=== PATIENT | female | born 1965 | race Caucasian/White ===

== ENCOUNTER → 2017-11-12 | Outpatient (CLI) | payer OTHER | END | disposition home or self-care (01) | LOC: KCIC MAMMO 09:44 | DX: Z12.31 Encounter for screening mammogram for malignant neoplasm of breast (principal) | CPT/HCPCS: 77063; 77067 ==

== ENCOUNTER → 2017-11-25 | Outpatient (CLI) | payer OTHER | END | disposition home or self-care (01) | LOC: KCIC US 08:00 | DX: N64.89 Other specified disorders of breast (principal) | CPT/HCPCS: 76641 ==

== ENCOUNTER → 2018-06-07 | Outpatient (CLI) | payer OTHER ==
--- NOTE | 2018-06-07 17:46 | KCIC ---
EXAM: Bilateral digital diagnostic mammogram with tomosynthesis; bilateral breast sonogram. HISTORY: 52-year-old female presents for 6 month follow-up evaluation of benign-appearing fibers cystic lesions within both breasts demonstrated on a mammogram and sonogram dated 11/12/2017 and 11/25/2017. TECHNIQUE: Full-field digital craniocaudal and mediolateral oblique 2D and 3D tomosynthesis images of both breasts are obtained for evaluation. Computer aided detection with [employer] software version 9.3 was applied. Sonographic imaging of both breasts including all 4 quadrants and the retroareolar tissues was performed. COMPARISON: 11/25/2017 and 11/12/2017 BREAST PARENCHYMAL DENSITY: Level B - Scattered fibroglandular densities. FINDINGS: There is stable areas of nodularity and asymmetry within both breasts. There is no new suspicious mass, calcification or distortion within either breast. Sonographic imaging of the right breast demonstrates a 6 x 4 x 3 mm hypoechoic lesion at the 12:00 position 3 cm from the nipple, previously measuring 7 x 5 x 3 mm. The previously demonstrated lesion at the 9:00 position 11 cm from nipple is not seen on this exam. Sonographic imaging of the left breast demonstrates a circumscribed hypoechoic lesion at the 3:00 position 7 cm from the nipple measuring 4 x 2 x 2 mm, previously measuring 5 x 4 x 3 mm. There is a similar hypoechoic lesion at the 4:00 position 5 cm from the nipple measuring 4 x 4 x 3 mm. There is no correlate for this finding on the prior sonogram. IMPRESSION: 1. 6 mm suspected benign fibrocystic lesion at the 12:00 position of the right breast, slightly decreased compared to the prior study. The second lesion demonstrated within the right breast on the prior study is not seen on the current exam. 2. 4 mm suspected benign complicated cystic or fibrocystic lesion within the 3:00 position of the left breast, slightly decreased compared to the prior study. There is second hypoechoic lesion measuring 4 mm at the 4:00 position which demonstrates no clear correlate on the prior study. 3. BI-RADS Category 3: Probably benign finding(s). Precautionary short-term follow up with a bilateral breast sonogram in 6 months is recommended to confirm longer-term stability. If your mammogram demonstrates that you have dense breast tissue, which could hide abnormalities, and if you have other risk factors for breast cancer that have been identified, you might benefit from supplemental screening tests that may be suggested by your ordering physician. Dense breast tissue, in and of itself, is a relatively common condition. This information is not provided to cause undue concern, but rather to raise your awareness and to promote discussion with your physician regarding the presence of other risk factors, in addition to dense breast tissue. A report of your mammography results will be sent to you and your physician. You should contact your physician if you have any questions or concerns regarding this report. Mammography is a sensitive method for finding small breast cancers, but it does not detect them all and is not a substitute for careful clinical examination. A negative mammogram does not negate a clinically suspicious finding and should not result in delay in biopsying a clinically suspicious abnormality. PQRS compliance statement - Patient information was entered into a reminder system with a target due date for the next mammogram. "Our facility is accredited by the [employer] Mammography Program." Electronically signed by: Crystal Harrison MD (06/07/2018 5:42 PM) [facility]
--- NOTE | 2018-06-08 08:37 | KCIC ---
EXAM: Bilateral digital diagnostic mammogram with tomosynthesis; bilateral breast sonogram. HISTORY: 52-year-old female presents for 6 month follow-up evaluation of benign-appearing fibers cystic lesions within both breasts demonstrated on a mammogram and sonogram dated 11/12/2017 and 11/25/2017. TECHNIQUE: Full-field digital craniocaudal and mediolateral oblique 2D and 3D tomosynthesis images of both breasts are obtained for evaluation. Computer aided detection with [employer] software version 9.3 was applied. Sonographic imaging of both breasts including all 4 quadrants and the retroareolar tissues was performed. COMPARISON: 11/25/2017 and 11/12/2017 BREAST PARENCHYMAL DENSITY: Level B - Scattered fibroglandular densities. FINDINGS: There is stable areas of nodularity and asymmetry within both breasts. There is no new suspicious mass, calcification or distortion within either breast. Sonographic imaging of the right breast demonstrates a 6 x 4 x 3 mm hypoechoic lesion at the 12:00 position 3 cm from the nipple, previously measuring 7 x 5 x 3 mm. The previously demonstrated lesion at the 9:00 position 11 cm from nipple is not seen on this exam. Sonographic imaging of the left breast demonstrates a circumscribed hypoechoic lesion at the 3:00 position 7 cm from the nipple measuring 4 x 2 x 2 mm, previously measuring 5 x 4 x 3 mm. There is a similar hypoechoic lesion at the 4:00 position 5 cm from the nipple measuring 4 x 4 x 3 mm. There is no correlate for this finding on the prior sonogram. IMPRESSION: 1. 6 mm suspected benign fibrocystic lesion at the 12:00 position of the right breast, slightly decreased compared to the prior study. The second lesion demonstrated within the right breast on the prior study is not seen on the current exam. 2. 4 mm suspected benign complicated cystic or fibrocystic lesion within the 3:00 position of the left breast, slightly decreased compared to the prior study. There is second hypoechoic lesion measuring 4 mm at the 4:00 position which demonstrates no clear correlate on the prior study. 3. BI-RADS Category 3: Probably benign finding(s). Precautionary short-term follow up with a bilateral breast sonogram in 6 months is recommended to confirm longer-term stability. If your mammogram demonstrates that you have dense breast tissue, which could hide abnormalities, and if you have other risk factors for breast cancer that have been identified, you might benefit from supplemental screening tests that may be suggested by your ordering physician. Dense breast tissue, in and of itself, is a relatively common condition. This information is not provided to cause undue concern, but rather to raise your awareness and to promote discussion with your physician regarding the presence of other risk factors, in addition to dense breast tissue. A report of your mammography results will be sent to you and your physician. You should contact your physician if you have any questions or concerns regarding this report. Mammography is a sensitive method for finding small breast cancers, but it does not detect them all and is not a substitute for careful clinical examination. A negative mammogram does not negate a clinically suspicious finding and should not result in delay in biopsying a clinically suspicious abnormality. PQRS compliance statement - Patient information was entered into a -- reminder system with a target due date for the next mammogram. "Our facility is accredited by the [employer] Mammography Program." Electronically signed by: Crystal Harrison MD (06/07/2018 5:42 PM) [facility] DICTATED and SIGNED BY: CRYSTAL HARRISON MD DATE: 06/07/18 1737 MTDD
== END | disposition home or self-care (01) ==
LOC: KCIC MAMMO 12:47
PROVIDERS: ATTEND Obstetrics & Gynecology
DX: N60.02 Solitary cyst of left breast (principal); N63.12 Unspecified lump in the right breast, upper inner quadrant
CPT/HCPCS: 76641; 77066; G0279; 77062

== ENCOUNTER → 2019-01-05 | Outpatient (CLI) | payer OTHER ==
--- NOTE | 2019-01-05 14:16 | KCIC ---
BREAST BILATERAL Clinical Indication: Six-month follow-up. Comparison: Bilateral breast ultrasound June 07, 2018 and November 25, 2017. Technique: Real-time ultrasound imaging of the right and left breast is performed. Findings: Right breast 12:00 position 3 cm from the nipple, 3 mm fibrocystic change is stable. No abnormal axillary lymph node. In the left breast 3:00 position 7 cm from the nipple there is 3 mm fibrocystic lesion, previously measuring 4 mm. At the 4:00 position 5 cm from the nipple, fibrocystic lesion measures up to 3 mm, previously 4 mm. No abnormal axillary lymph node. IMPRESSION: Sub-5 mm foci of fibrocystic change in the right and left breast are stable or slightly smaller. Recommend patient return to routine mammogram screening. BI-RADS category 2, benign findings. Electronically signed by: Manuel Gross MD (01/05/2019 2:14 PM) [id number]
== END | disposition home or self-care (01) ==
LOC: KCIC MAMMO 12:59
PROVIDERS: ATTEND Obstetrics & Gynecology
DX: N60.12 Diffuse cystic mastopathy of left breast (principal); N60.11 Diffuse cystic mastopathy of right breast
CPT/HCPCS: 76641